=== PATIENT | male | born 1985 | race Caucasian/White ===

== ENCOUNTER 2016-10-29 17:46 | Emergency (ER) | payer BC ==
[~2016-10-29] VITALS: Ht 182.9 cm; Wt 83.9 kg
--- NOTE | 2016-10-29 18:11 | PHYS DOC ---
Adult General Chief Complaint Chief Complaint: SHOULDER INJURY HPI HPI Patient is a 31 year old male who presents with left shoulder pain. He is right hand dominant and fell this am at 0830 AM walking up the stairs and fell landing on his left shoulder. He states "it didn't hurt much initially." He took a nap and then when he woke up "it started to hurt." No numbness of tingling of the hand. No other complaints or injuries. No neck pain, did not strike head; no LOC. Review of Systems Review of Systems Musculoskeletal: Denies back pain or neck pain. Left shoulder pain. Integument: Denies rash or skin lesions ; no laceration Neurologic: Denies headache, focal weakness or sensory changes Allergies Allergies Allergies Coded Allergies Type Severity Reaction Last Updated Verified No Known Drug Allergies 10/29/16 No Physical Exam Physical Exam Constitutional: Well developed, well nourished, no acute distress, non-toxic appearance. Neck: Normal range of motion, no tenderness, supple, no stridor. Non tender to palpation of cervical spine Cardiovascular:Heart rate regular rhythm, no murmur Lungs & Thorax: Bilateral breath sounds clear to auscultation. clavicles equal at sternal clavicular junction bilaterally. no step off. Skin: Warm, dry, no erythema, no rash. No laceration; no abrasion Back: No tenderness, no CVA tenderness. Extremities: Holding left shoulder at abduction. tender along clavicle. No crepitance or subcut emphysema. Neurologic: Alert and oriented X 3, normal motor function, normal sensory function, no focal deficits noted. Psychologic: Affect normal, judgement normal, mood normal. Current Patient Data Vital Signs Vital Signs Date Time Temp Pulse Resp B/P (MAP) Pulse Ox O2 Delivery O2 Flow Rate FiO2 10/29/16 18:36 18 95 Room Air 10/29/16 18:02 98.1 95 Radiology/Procedures Radiology/Procedures Left shoulder (including clavicle) xray interpreted by myself: (1830 PM) no fracture noted. no pneumo; no subcut emphysema Course & Med Decision Making Course & Med Decision Making Pertinent Imaging studies reviewed. (See chart for details) I assumed care at shift change. Xray ordered. Xray with no fracture. NO evidence of clavicular dislocation or sternal/clavicular disruption. He was given IM pain meds and reassessed. BP 130/66, P 87. His pain is better. Given precautions. Sling and ice with recheck with PCP. May need MRI imaging. Dragon Disclaimer Dragon Disclaimer This chart was dictated in whole or in part using Voice Recognition software in a busy, high-work load, and often noisy Emergency Department environment. It may contain unintended and wholly unrecognized errors or omissions. Departure Departure: Impression: Primary Impression: Left shoulder strain Additional Impression: Fall Disposition: 01 HOME, SELF-CARE Condition: GOOD Referrals: PCP,DEVAUGHN (PCP) VERÓNICA GAONA MD Patient Instructions: Shoulder Pain Additional Instructions: KEEP ICE ON IT TONIGHT. IF YOUR PAIN DOES NOT IMPROVE THEN YOU MAY NEED FURTHER IMAGING STUDIES; SUCH AN MRI. CONTACT YOUR PHYSICIAN AND THEY CAN ARRANGE FOR A RECHECK. Scripts Naproxen (NAPROSYN) 500 Mg Tablet 1 TAB PO BID, #30 TAB 1 Refill Prov: GIOVANNA STEWART MD 10/29/16 Hydrocodone Bit/Acetaminophen (NORCO 5-325 TABLET) 1 Each Tablet 1-2 TAB PO Q4-6HRS, #20 TAB Prov: GIOVANNA STEWART MD 10/29/16 Problem Qualifiers Primary Impression: Left shoulder strain Encounter type: initial encounter Qualified Codes: S46.912A - Strain of unspecified muscle, fascia and tendon at shoulder and upper arm level, left arm , initial encounter Additional Impression: Fall Encounter type: initial encounter Qualified Codes: W19.XXXA - Unspecified fall, initial encounter GIOVANNA STEWART MD Oct 29, 2016 18:10
[2016-10-29] MEDS ORDERED: MORPHINE SULFATE 2 MG/ML DISP.SYRIN. IM ONE (18:30)
[2016-10-29] MEDS: PROMETHAZINE IM 25 MG/ML VIAL IM ONE ×2 (18:30→18:36)
[2016-10-29] MEDS ORDERED: HYDR-971 PO (19:15)
[2016-10-29] MEDS ORDERED: NAPR500T PO (19:15)
[2016-10-29 19:32] VITALS: BP 142/81
--- NOTE | 2016-10-30 09:20 | RAD ---
Three-view left shoulder radiographs 10/29/2016 Clinical history: Severe left shoulder pain post fall. AP internal and external rotation and transscapular digital radiographs of the left shoulder were obtained. No fracture or dislocation of the left shoulder is seen. Mild degenerative changes are seen involving the left AC joint and left glenohumeral joint. Impression: No fracture or dislocation of the left shoulder is seen.
== END 2016-10-29 19:34 | disposition home or self-care (01) ==
LOC: ER 17:46
DX: S46.912A Strain of unspecified muscle, fascia and tendon at shoulder and upper arm level, left arm, initial encounter (principal); W10.9XXA Fall (on) (from) unspecified stairs and steps, initial encounter; Y93.01 Activity, walking, marching and hiking; Y99.8 Other external cause status; Y92.89 Other specified places as the place of occurrence of the external cause
CPT/HCPCS: 73030; 96372; 99284; J2270; J2550